=== PATIENT | male | born 1975 | race Caucasian/White ===

== ENCOUNTER 2022-04-09 21:26 | Emergency (ER) | payer OTHER ==
[2022-04-09 21:58] LABS: BASOPHIL 0.6 % (0-2); EOSINOPHIL 3.4 % (0-5); HCT 45.3 % (42.0-52.0); HGB 16.7 g/dl (13.2-18.0); MCH 31.8 pg (25.0-31.0); MCHC 36.9 g/dL (32.0-36.0); MCV 86.3 fL (78.0-100.0); MONOCYTE 6.9 % (0-12); MPV 9.4 fL (6.0-9.5); NEUTROPHIL 42.4 % (41-80); NRBC 0; PLT 447 K/uL (150-400); RBC 5.25 M/uL (4.70-6.00); RDW 11.9 % (11.5-14.0); WBC 10.1 K/uL (4.0-10.5)
[2022-04-09 22:21] LABS: ALBUMIN 4.3 g/dL (3.4-5.0); BILIRUBIN - TOTAL 0.7 mg/dL (0.2-1.0); BUN/CREAT RATIO (CALC) 9.5 RATIO; CREATININE 1.37 mg/dL (0.67-1.17); GLOBULIN (CALCULATION) 2.7 g/dL; POTASSIUM 3.5 mmol/L (3.5-5.1)
[2022-04-09] MEDS ORDERED: LOPRESSOR25 MG PO (23:54)
== END 2022-04-10 00:04 | disposition home or self-care (01) ==
LOC: FER 21:26
PROVIDERS: Emergency Medicine
DX: I47.1 Supraventricular tachycardia (principal); I10 Essential (primary) hypertension; Z79.899 Other long term (current) drug therapy; Z86.16 Personal history of COVID-19
CPT/HCPCS: 36415; 80053; 84443; 84484; 85025; 85379; 93005; J0153; J7030